=== PATIENT | female | born 1975 | race Caucasian/White ===

== ENCOUNTER 2018-08-31 21:29 | Emergency (ER) | payer MEDICARE, MEDICAID ==
--- NOTE | 2018-08-31 21:39 | Emergency Department Record ---
History of Present Illness - General Chief complaint: Female Urogenital Problem Stated complaint: catheter not draining Time Seen by Provider: 08/31/18 21:35 Source: Patient, EMS Mode of Arrival: EMS Limitations: No limitations - History of Present Illness Initial comments: 43 yo female presents to ED for evaluation of catheter malfunction for the past 2-3 days. Patient reports placement of a suprapubic catheter [address] Cedeno at [facility] for MS symptoms, reports that she missed her follow-up appointment Wednesday as she does not have transportation to [place]. Patient denies fevers, chills, or abdominal pain symptoms. MD Complaint: Other Onset/Timin -: Days(s) Location: Suprapubic Improves with: None Worsens with: None Associated Symptoms: Denies other symptoms - Related Data Home Medications Medication Instructions Recorded Confirmed Last Taken Ocrelizumab [Ocrevus] 300 mg IV ASDIR 08/31/18 08/31/18 05/16/18 Previous Rx's Medication Instructions Recorded Cephalexin [Keflex] 500 mg PO TID #20 cap 08/31/18 Allergies Allergy/AdvReac Type Severity Reaction Status Date / Time Sulfa (Sulfonamide Allergy Intermediate SWELLING Verified 08/31/18 21:43 Antibiotics) OF THE LIPS Review of Systems Constitutional: Denies: Chills, Fever, Malaise, Night sweats Eyes: Denies: Eye discharge, Eye pain ENT: Denies: Congestion, Ear pain, Epistaxis Respiratory: Denies: Cough, Dyspnea Cardiovascular: Denies: Chest pain, Dyspnea on exertion Endocrine: Denies: Fatigue, Heat or cold intolerance Gastrointestinal: Denies: Abdominal pain, Nausea, Vomiting Genitourinary: Reports: Other ("Suprapubic catheter is not draining") Musculoskeletal: Denies: Arthralgia, Back pain Skin: Denies: Bruising, Change in color Neurological: Denies: Abnormal gait, Confusion, Headache, Seizure Psychiatric: Denies: Anxiety Hematological/Lymphatic: Denies: Anemia, Blood Clots Past Medical History - SOCIAL HISTORY Smoking Status: Light tobacco smoker (<10/day) Drug Use: None - RESPIRATORY Hx Respiratory Disorders: No - CARDIOVASCULAR Hx Cardio Disorders: Yes Hx Hypertension: Yes Comment:: hypercholesteremia - NEURO Hx Neuro Disorders: Yes Hx CVA: Yes (2008) Comment:: MS - GI Hx GI Disorders: Yes Hx Reflux: Yes - Hx Genitourinary Disorders: Yes Hx Bladder Problem: Yes Comment:: Self caths - ENDOCRINE Hx Endocrine Disorders: Yes Hx Thyroid Disease: Yes (low) - MUSCULOSKELETAL Hx Musculoskeletal Disorders: Yes Hx Back Injury: Yes Comment:: MS - PSYCH Hx Psych Problems: No - HEMATOLOGY/ONCOLOGY Hx Hematology/Oncology Disorders: No Family Medical History Hx Cancer: Grandparents Physical Exam - General General Appearance: Alert, Oriented x3, Cooperative, No acute distress Limitations: No limitations - Head Head exam: Atraumatic, Normocephalic, Normal inspection Head exam detail: negative: Abrasion, Contusion, Elliott's sign, General tenderness, Hematoma, Laceration - Eye Eye exam: Normal appearance. negative: Conjunctival injection, Periorbital swelling, Periorbital tenderness, Scleral icterus - ENT Ear exam: negative: Auricular hematoma, Auricular trauma Nasal Exam: negative: Active bleeding, Discharge, Dried blood, Foreign body Mouth exam: negative: Drooling, Laceration, Muffled voice, Tongue elevation - Neck Neck exam: Normal inspection. negative: Meningismus, Tenderness - Respiratory Respiratory exam: Normal lung sounds bilaterally. negative: Rales, Respiratory distress, Rhonchi, Stridor - Cardiovascular Cardiovascular Exam: Regular rate, Normal rhythm, Normal heart sounds - GI/Abdominal GI/Abdominal exam: Soft. negative: Rebound, Rigid, Tenderness - Rectal Rectal exam: Deferred - Extremities Extremities exam: Normal inspection. negative: Pedal edema, Tenderness - Back Back exam: Denies: CVA tenderness (R), CVA tenderness (L) - Neurological Neurological exam: Alert, Normal gait, Oriented X3 - Psychiatric Psychiatric exam: Normal affect, Normal mood - Skin Skin exam: Normal color. negative: Abrasion Type of lesion: negative: abrasion Course Vital Signs 08/31/18 21:33 Temperature 98.6 F Pulse Rate [ 76 Pulse Ox Probe] Respiratory 20 Rate Blood Pressure 130/86 [Left Arm] Pulse Ox 100 - Reevaluation(s) Reevaluation #1: 08/31/18 21:56 Bladder scan was performed: 17 mL/39 mL/39 mL. Will obtain basic laboratory studies to assess for acute renal failure, flush catheter to assess for patency. Reevaluation #2: 08/31/18 22:17 Laboratory studies were reviewed and grossly unremarkable for an acute process. No clinical evidence for ARF. Case was discussed with Dr. Murray at [facility] (on-call for Dr. Bey), reports that urinary leakage via the urethra may be due to infection, recommends tr eatment despite UA results for possible colonization. Dr. Murray reports that the patient may require urethral sling if symptoms continue. Will treat with Keflex as directed with instructions to call Dr. Bey in the AM for further evaluation. Medical Decision Making - Lab Data Result diagrams: 08/31/18 22:00 08/31/18 22:00 Disposition Disposition: Discharge Clinical Impression: Urinary incontinence Qualifiers: Urinary Incontinence type: unspecified incontinence Qualified Code(s): R32 - Unspecified urinary incontinence Disposition: Home, Self-Care Condition: (2) Stable Instructions: Urinary Incontinence (ED) Additional Instructions: Return to ED if your symptoms worsen or if you have any concerns. Keflex as directed. Follow-up with Dr. Bey tomorrow morning for further recommendations. Prescriptions: Cephalexin [Keflex] 500 mg PO TID #20 cap Forms: Patient Portal Access Time of Disposition: 22:21 Quality - Quality Measures Quality Measures: N/A - Blood Pressure Screening Does Patient Have Any of the Following: No Blood Pressure Classification: Pre-Hypertensive BP Reading Systolic Measurement: 130 Diastolic Measurement: 86 Screening for High Blood Pressure: < Pre-Hypertensive BP, F/U Documented > [G8950] Pre-Hypertensive Follow-up Interventions: Referral to alternative/primary care provider.
[2018-08-31 22:04] LABS: ABSOLUTE NEUTROPHIL COUNT 7.14; BASO % 0.5 % (0-6); EOS % 3.3 % (0-6); GRAN % 64.2 % (47-80); HEMATOCRIT 37.6 % (35.0-47.0); HEMOGLOBIN 11.5 gm/dl (11.6-16.0); LYMPH % 23.9 % (16-45); MEAN CORPUSCULAR HEMOGLOBIN 26.3 pg (27-33); MEAN CORPUSCULAR HGB CONC 30.6 g/dl (32-36); MEAN PLATELET VOLUME 9.4 fl (7.4-10.4); MONO % 8.1 % (0-9); PLATELET COUNT 428 K/uL (130-400); RED BLOOD COUNT 4.37 M/uL (3.80-5.40); RED CELL DISTRIBUTION WIDTH 17.5 % (11.5-14.5); WHITE BLOOD COUNT W/O DIFF 11.1 K/uL (4.2-12.2)
[2018-08-31 22:14] LABS: BLOOD UREA NITROGEN 15 mg/dL (6-20); CREATININE 0.6 mg/dL (0.5-0.9); EST GLOMERULAR FILTRATION RATE > 60 mL/min
[2018-08-31 22:17] LABS: GLUCOSE,RANDOM 81 mg/dL (74-109)
[2018-08-31] MEDS ORDERED: CEPHALEXIN 500 MG CAPSULE PO STA (22:21)
== END 2018-08-31 22:55 | disposition home or self-care (01) ==
LOC: ER 21:29
DX: R32 Unspecified urinary incontinence (principal); G35 Multiple sclerosis; I10 Essential (primary) hypertension; F17.210 Nicotine dependence, cigarettes, uncomplicated; Z86.73 Personal history of transient ischemic attack (TIA), and cerebral infarction without residual deficits
CPT/HCPCS: 80048; 85025; 99283; 99284

== ENCOUNTER 2018-09-05 17:53 | Emergency (ER) | payer MEDICARE, MEDICAID ==
--- NOTE | 2018-09-05 18:30 | Emergency Department Record ---
History of Present Illness - General Stated complaint: CATHTER ISSUES Time Seen by Provider: 09/05/18 18:24 Source: Patient Mode of Arrival: Ambulatory Limitations: No limitations - History of Present Illness Initial comments: 43 yo female presents with murrieta catheter problems that have continued since a August 31 ED visit. The patient has MS. She had a suprapubic catheter placed in July at [facility]. She has not had any murrieta output since Wednesday. She is leaking her urine out her urethra. No fevers. No pain. She does not have transportation to [facility] so she came to [facility] ED. Dr Fernandez is her urologist at [facility]. Complaint: Other -: Days(s) (1) Location: Other Radiation: Other Severity: Moderate Improves with: None Worsens with: Urination Patient : No Associated Symptoms: Denies other symptoms - Related Data Sexually active: No Previous Rx's Medication Instructions Recorded Cephalexin [Keflex] 500 mg PO TID #20 cap 08/31/18 Allergies Allergy/AdvReac Type Severity Reaction Status Date / Time Sulfa (Sulfonamide Allergy Intermediate SWELLING Verified 09/05/18 18:47 Antibiotics) OF THE LIPS Review of Systems Constitutional: Denies: Chills, Fever, Malaise, Weakness Eyes: Denies: Eye discharge ENT: Denies: Congestion Respiratory: Denies: Cough Cardiovascular: Denies: Chest pain Endocrine: Denies: Fatigue Gastrointestinal: Denies: Abdominal pain, Diarrhea, Nausea, Vomiting Genitourinary: Reports: Dysuria, Other Musculoskeletal: Denies: Arthralgia, Back pain Skin: Denies: Bruising, Change in color, Rash Neurological: Denies: Headache Psychiatric: Denies: Anxiety Hematological/Lymphatic: Denies: Easy bleeding, Easy bruising Past Medical History - SOCIAL HISTORY Smoking Status: Light tobacco smoker (<10/day) Drug Use: None - RESPIRATORY Hx Respiratory Disorders: No - CARDIOVASCULAR Hx Cardio Disorders: Yes Hx Hypertension: Yes Comment:: hypercholesteremia - NEURO Hx Neuro Disorders: Yes Hx CVA: Yes (2008) Comment:: MS - GI Hx GI Disorders: Yes Hx Reflux: Yes - Hx Genitourinary Disorders: Yes Hx Bladder Problem: Yes Comment:: Self caths - ENDOCRINE Hx Endocrine Disorders: Yes Hx Thyroid Disease: Yes (low) - MUSCULOSKELETAL Hx Musculoskeletal Disorders: Yes Hx Back Injury: Yes Comment:: MS - PSYCH Hx Psych Problems: No - HEMATOLOGY/ONCOLOGY Hx Hematology/Oncology Disorders: No Family Medical History Hx Cancer: Grandparents Physical Exam - General General Appearance: Alert, Oriented x3, Cooperative, No acute distress Limitations: No limitations - Head Head exam: Atraumatic - Eye Eye exam: Normal appearance. negative: Conjunctival injection - ENT ENT exam: Normal exam Ear exam: Normal external inspection Nasal Exam: Normal inspection Mouth exam: Normal external inspection - Neck Neck exam: Normal inspection - Respiratory Respiratory exam: Normal lung sounds bilaterally. negative: Respiratory distress - Cardiovascular Cardiovascular Exam: Regular rate, Normal rhythm, Normal heart sounds - GI/Abdominal GI/Abdominal exam: Soft, Other (surgery site is clean and intact, no swelling or erythema) - Rectal Rectal exam: Deferred - exam: Deferred - Extremities Extremities exam: Normal inspection - Back Back exam: Denies: CVA tenderness (R), CVA tenderness (L) - Neurological Neurological exam: Alert, Oriented X3 - Psychiatric Psychiatric exam: Normal affect, Normal mood - Skin Skin exam: Dry, Intact, Normal color, Warm Course - Reevaluation(s) Reevaluation #1: 09/05/18 19:34 The Bladder scan was 0 The RN attempted multiple times to flush the murrieta without ability to flush suggesting obstruction. 09/05/18 19:[address] Fleming of of Urology for Dr Fernandez. He instructed to not manipulate, remove, replace the suprapubic catheter. It is an option to place a urethral murrieta to keep her dry until follow up on . The patient was informed of the conversation and given her options. 09/05/18 A murrieta was placed. The patient tolerated this well. We discussed home care and her follow up plans on . She is already on an antibiotic Disposition Disposition: Discharge Clinical Impression: Incontinence in female Murrieta catheter problem Qualifiers: Encounter type: initial encounter Qualified Code(s): T83.9XXA - Unspecified complication of genitourinary prosthetic device, implant and graft, initial encounter Disposition: Home, Self-Care Condition: (2) Stable Instructions: Murrieta Catheter Placement and Care (ED) Additional Instructions: Follow up with your Urologist as scheduled Call your urologist and neurologist for follow up questions and appointments Be seen if you have any concerns with the catheter, fever, vomiting, or other concerns. Forms: Patient Portal Access Time of Disposition: 20:11 Quality - Quality Measures Quality Measures: N/A - Blood Pressure Screening Does Patient Have Any of the Following: No Blood Pressure Classification: Pre-Hypertensive BP Reading Systolic Measurement: 144 Diastolic Measurement: 83 Screening for High Blood Pressure: < Pre-Hypertensive BP, F/U Documented > [G8950] Pre-Hypertensive Follow-up Interventions: Referral to alternative/primary care provider.
== END 2018-09-05 21:11 | disposition home or self-care (01) ==
LOC: ER 17:53
DX: T83.038A Leakage of other urinary catheter, initial encounter (principal)
CPT/HCPCS: 51702; 99283

== ENCOUNTER 2018-09-21 23:26 | Emergency (ER) | payer MEDICARE ==
--- NOTE | 2018-09-21 23:31 | Emergency Department Record ---
History of Present Illness - General Chief complaint: Female Urogenital Problem Stated complaint: UNABLE TO URINATE Time Seen by Provider: 09/21/18 23:31 Source: Patient, EMS - History of Present Illness Initial comments: The patient had a suprapubic catheter placed in July at the [facility] by Dr. Fernandez because she has M.S. She was seen here on 09-05-18 for a blocked urostomy tube, and was given a Murrieta catheter at that time and told to follow up with [facility] urology. She states she did see them about a "week and a half ago." Tonight she states that she has had no urine flow from her catheter for about 2 and a half hours. She also has a feeling of fullness in her lower abdomen. She denies other new problems such as fevers, chills, nausea, vomiting or URI symptoms. MD Complaint: Other (plugged catheter) - Related Data Previous Rx's Medication Instructions Recorded Cephalexin [Keflex] 500 mg PO TID #29 cap 09/22/18 Allergies Allergy/AdvReac Type Severity Reaction Status Date / Time Sulfa (Sulfonamide Allergy Intermediate SWELLING Verified 09/05/18 18:47 Antibiotics) OF THE LIPS Review of Systems Reviewed: No additional complaints except as noted below Constitutional: Reports: As per HPI. Denies: Chills, Fever, Malaise, Night sweats, Weakness, Weight change Eyes: Reports: As per HPI. Denies: Eye discharge, Eye pain, Photophobia, Vision change ENT: Reports: As per HPI. Denies: Congestion, Dental pain, Ear pain, Epistaxis, Hearing loss, Throat pain Respiratory: Reports: As per HPI. Denies: Cough, Dyspnea, Hemoptysis, Stridor, Wheezes Cardiovascular: Reports: As per HPI. Denies: Arrhythmia, Chest pain, Dyspnea on exertion, Edema, Murmurs, Orthopnea, Palpitations, Paroxysmal nocturnal dyspnea, Rheumatic Fever, Syncope Endocrine: Reports: As per HPI. Denies: Fatigue, Heat or cold intolerance, Polydipsia, Polyuria Gastrointestinal: Reports: As per HPI. Denies: Abdominal pain, Constipation, Diarrhea, Hematemesis, Hematochezia, Melena, Nausea, Vomiting Genitourinary: Reports: As per HPI. Denies: Abnormal menses, Discharge, Dyspareunia, Dysuria, Frequency, Hematuria, Incontinence, Retention, Urgency Musculoskeletal: Reports: As per HPI. Denies: Arthralgia, Back pain, Gout, Joint swelling, Myalgia, Neck pain Skin: Reports: As per HPI. Denies: Bruising, Change in color, Change in hair/nails, Lesions, Pruritus, Rash Neurological: Reports: As per HPI. Denies: Abnormal gait, Confusion, Headache, Numbness, Paresthesias, Seizure, Tingling, Tremors, Vertigo, Weakness Psychiatric: Reports: As per HPI. Denies: Anxiety, Auditory hallucinations, Depression, Homicidal thoughts, Suicidal thoughts, Visual hallucinations Hematological/Lymphatic: Reports: As per HPI. Denies: Anemia, Blood Clots, Easy bleeding, Easy bruising, Swollen glands Past Medical History - SOCIAL HISTORY Smoking Status: Light tobacco smoker (<10/day) Drug Use: None - RESPIRATORY Hx Respiratory Disorders: No - CARDIOVASCULAR Hx Cardio Disorders: Yes Hx Hypertension: Yes Comment:: hypercholesteremia - NEURO Hx Neuro Disorders: Yes Hx CVA: Yes (2008) Comment:: MS - GI Hx GI Disorders: Yes Hx Reflux: Yes - Hx Genitourinary Disorders: Yes Hx Bladder Problem: Yes Comment:: Self caths - ENDOCRINE Hx Endocrine Disorders: Yes Hx Thyroid Disease: Yes (low) - MUSCULOSKELETAL Hx Musculoskeletal Disorders: Yes Hx Back Injury: Yes Comment:: MS - PSYCH Hx Psych Problems: No - HEMATOLOGY/ONCOLOGY Hx Hematology/Oncology Disorders: No Family Medical History Hx Cancer: Grandparents Physical Exam - General General Appearance: Alert, Oriented x3, Cooperative, No acute distress - Head Head exam: Normal inspection - Eye Eye exam: Normal appearance, PERRL, EOMI. negative: Conjunctival injection, Nystagmus Pupils: Normal accommodation - ENT ENT exam: Normal exam, Mucous membranes moist, Normal external ear exam, Normal orophraynx, TM's normal bilaterally Ear exam: Normal external inspection. negative: External canal tenderness Nasal Exam: Normal inspection. negative: Discharge, Sinus tenderness Mouth exam: Normal external inspection, Tongue normal Teeth exam: Normal inspection. negative: Dental caries, Dental tenderness #, Fractured tooth # Throat exam: Normal inspection. negative: Tonsillar erythema, Tonsillomegaly, Tonsillar exudate - Neck Neck exam: Normal inspection, Full ROM. negative: Lymphadenopathy, Meningismus, Tenderness - Respiratory Respiratory exam: Normal lung sounds bilaterally. negative: Accessory muscle use, Chest wall tenderness, Decreased breath sounds, Prolonged expiratory, Rales, Respiratory distress, Rhonchi, Stridor, Wheezes - Cardiovascular Cardiovascular Exam: Regular rate, Normal rhythm, Normal heart sounds - GI/Abdominal GI/Abdominal exam: Soft, Normal bowel sounds, Other (suprapubic catheter in place; obese abdomen). negative: Tenderness - Rectal Rectal exam: Deferred - exam: Deferred - Extremities Extremities exam: Normal inspection, Full ROM, Normal capillary refill. negative: Tenderness - Back Back exam: Reports: Normal inspection, Full ROM. Denies: Muscle spasm, Rash noted, Tenderness - Neurological Neurological exam: Alert, Normal gait, Oriented X3, Reflexes normal - Psychiatric Psychiatric exam: Normal affect, Normal mood - Skin Skin exam: Dry, Intact, Normal color, Warm Course - Reevaluation(s) Reevaluation #1: Discussed options with patient who agrees to murrieta catheter placement with leg bag. She states there is no need to call her urologist as they will always see her when she has this problem, which has happened before. She states her dad has a vehicle which can transport her wheelchair to [facility] during the day tomorrow. She has been off antibiotics for about a week now, and keflex will be restarted. 09/21/18 23:53 09/22/18 00:09 Reevaluation #2: Urostomy tube is does not flush. Bladder scan reads 31, 41, 46. 09/21/18 23:59 Reevaluation #3: Murrieta catheter with leg bag placed. Patient to be transported home. She states they are working on obtaining a private vehicle for her to be transported from home. 09/22/18 00:07 Medical Decision Making - Management Options MDM Management: Additional Work-up Planned (e.g. ADM/Transfer/OP Study) (To Urology Office at [facility] during the day tomorrow for further care of blocked catheter.) Disposition Disposition: Discharge Clinical Impression: Blocked suprapubic catheter Qualifiers: Encounter type: initial encounter Qualified Code(s): T83.090A - Other mechanical complication of cystostomy catheter, initial encounter Disposition: Home, Self-Care Condition: (1) Good Instructions: Murrieta Catheter Placement and Care (ED), How to Care for Your Suprapubic Catheter (ED) Additional Instructions: Take keflex 500 mg three times daily. See your Urologist Dr. Fernandez in the office tomorrow during daytime hours for care of your blocked catheter. Prescriptions: Cephalexin [Keflex] 500 mg PO TID #29 cap Forms: Patient Portal Access Quality - Quality Measures Quality Measures: N/A - Blood Pressure Screening Does Patient Have Any of the Following: No Blood Pressure Classification: Pre-Hypertensive BP Reading Systolic Measurement: 149 Diastolic Measurement: 81 Screening for High Blood Pressure: Patient Exclusion, Hx of HTN [G9744]
[2018-09-21] MEDS ORDERED: LIDOCAINE UROJECT 10 ML APPL MM ONE (23:52)
[2018-09-21] MEDS ORDERED: CEPHALEXIN 500 MG CAPSULE PO STA (23:56)
== END 2018-09-22 00:31 | disposition home or self-care (01) ==
LOC: ER 23:26
DX: T83.090A Other mechanical complication of cystostomy catheter, initial encounter (principal); Y73.2 Prosthetic and other implants, materials and accessory gastroenterology and urology devices associated with adverse incidents; I10 Essential (primary) hypertension; G35 Multiple sclerosis; F17.210 Nicotine dependence, cigarettes, uncomplicated
CPT/HCPCS: 99284